=== PATIENT | female | born 1970 | race Caucasian/White ===

== ENCOUNTER 2018-12-07 10:29 | Day surgery (SDC) | payer BC, OTHER ==
[2018-12-06 14:02] VITALS: BMI 21.6
--- NOTE | 2018-12-07 07:49 | HP ---
History & Physical Update - History History: No Change (47 y/o with PMH Hyperlipidemia who was seen in office and complained of Menorrhagia. Had HSN and was diganosed with endometrial polyps. Pt was counseled on her options and elected to undergo hysteroscopy D&C /polypectomy. No complaints today.) - Physical Physical: No Change - Assessment Assessment: No Change Currently as noted:: Endometrial polyps, menorrhagia - Plan Plan: No Change (Agree with H&P from 10/21/2018. Has menorrhagia and endometrial polyps, for hysteroscopy, d&C, polypectomy)
[2018-12-07 11:14] VITALS: BP 133/91; PULSE 91; TEMP 98
== END 2018-12-07 13:00 | disposition home or self-care (01) ==
LOC: JASU-SURG 10:29
PROVIDERS: ATTEND Obstetrics & Gynecology
DX: Z53.8 Procedure and treatment not carried out for other reasons (principal)
CPT/HCPCS: 36415; 84132; 84703; 86850; 86900; 86901; 87086; 87186

== ENCOUNTER 2019-01-04 09:34 | Day surgery (SDC) | payer BC, OTHER ==
[2019-01-04 10:29] VITALS: BMI 21.8
[2019-01-04 10:41] LABS: HCG,QUALITATIVE URINE Negative; HYALINE CASTS 3 /lpf (0-8); URINE APPEARANCE CLEAR; URINE BACTERIA 18.7 /hpf (NEGATIVE); URINE BILIRUBIN NEGATIVE (NEGATIVE); URINE COLOR YELLOW; URINE GLUCOSE (UA) NEGATIVE (NEGATIVE); URINE KETONE NEGATIVE (NEGATIVE); URINE LEUK ESTERASE NEGATIVE (NEGATIVE); URINE NITRITE NEGATIVE (NEGATIVE); URINE PROTEIN NEGATIVE (NEGATIVE); URINE RBC 4 /hpf (0-4); URINE UROBILINOGEN 0.2 mg/dL (0.2-1.0); URINE WBC 3 /hpf (0-5)
[2019-01-04] MEDS ORDERED: ACETAMINOPHEN 325 MG TABLET (FP) PO PRN (11:25)
--- NOTE | 2019-01-04 11:27 | HP ---
Admitting History and Physical - Admission Chief Complaint: Endometrial polyp History of Present Illness: 48 y/o with PMH of HLD here today for scheduled hysteroscopic myomectomy/ polypectomy, suction D&C for endometrial polyp found on ultrasound. History Source: Patient, Medical Record Limitations to Obtaining History: No Limitations - Past Medical History STRIPER: No: Alzheimer's Cardiovascular: No: HTN Gastrointestinal: No: Gastritis, GERD Hepatobiliary: No: Hepatitis B, Hepatitis C Renal/: Yes: UTI (recent UTI, treated, CARLENE negative) ...LMP: 11/25/18 ...: No Heme/Onc: No: Anemia Infectious Disease: No: HIV, MRSA Psych: No: Anxiety, Bipolar, Depression - Smoking History Smoking history: Never smoked - Alcohol/Substance Use Hx Alcohol Use: Yes (SOCIAL) Home Medications - Allergies Allergies/Adverse Reactions: Allergies Allergy/AdvReac Type Severity Reaction Status Date / Time No Known Allergies Allergy Verified 12/07/18 10:57 - Home Medications Home Medications: Ambulatory Orders Simvastatin [Zocor -] 40 mg PO HS 10/21/18 Cholecalciferol (Vitamin D3) [Vitamin D3 -] 400 unit PO DAILY 12/06/18 Review of Systems - Review of Systems Constitutional: reports: No Symptoms Eyes: reports: No Symptoms HENT: reports: No Symptoms Neck: reports: No Symptoms Cardiovascular: reports: No Symptoms Respiratory: reports: No Symptoms Gastrointestinal: reports: No Symptoms Genitourinary: reports: No Symptoms Breasts: reports: No Symptoms Reported Musculoskeletal: reports: No Symptoms Integumentary: reports: No Symptoms Neurological: reports: No Symptoms Endocrine: reports: No Symptoms Hematology/Lymphatic: reports: No Symptoms Psychiatric: reports: No Symptoms Physical Examination Vital Signs: Vital Signs Temperature 98.6 F 01/04/19 10:32 Pulse Rate 86 01/04/19 10:32 Respiratory Rate 20 01/04/19 10:32 Blood Pressure 124/71 01/04/19 10:32 O2 Sat by Pulse Oximetry (%) 100 01/04/19 10:32 Constitutional: Yes: Well Nourished, No Distress, Calm Eyes: Yes: Conjunctiva Clear, EOM Intact HENT: Yes: Atraumatic, Normocephalic Neck: Yes: Supple, Trachea Midline Cardiovascular: Yes: Regular Rate and Rhythm Respiratory: Yes: Regular, CTA Bilaterally Gastrointestinal: Yes: Normal Bowel Sounds, Soft Neurological: Yes: Alert, Oriented Psychiatric: Yes: Alert, Oriented Problem List - Problems (1) Endometrial polyp Code(s): N84.0 - POLYP OF CORPUS UTERI Assessment/Plan for hysteroscopic polypectomy/myomectomy and suction D&C NPO SCDs Anesthesia aware Consent signed in office, reconfirmed today
[2019-01-04] MEDS ORDERED: LACTATED RINGERS SOLUTION 1,000 ML IV SCH ×2 (11:30→11:45)
[2019-01-04] MEDS ORDERED: ONDANSETRON 4 MG/2 ML VIAL IVPUSH PRN (11:35)
[2019-01-04] MEDS ORDERED: MIDAZOLAM HCL 2 MG/2 ML SINGLE DOSE VIAL ONE (11:40)
[2019-01-04] MEDS ORDERED: PROPOFOL 20 ML ONE ×2 (11:45)
[2019-01-04] MEDS ORDERED: ROCURONIUM BROMIDE 50 MG/5 ML SYRINGE ONE (11:45)
--- NOTE | 2019-01-04 12:07 | OP ---
Operative Note - Note: Operative Date: 01/04/19 (dictation [id number]) Pre-Operative Diagnosis: suspected endometrial polyp Operation: hysteroscopy, suction D&C Findings: posterior uterine wall polypoid endometrial tissue Post-Operative Diagnosis: Same as Pre-op Surgeon: Briana Alexander Anesthesiologist/[employer]: Otilia Salguero MD Anesthesia: General Specimens Removed: endometrial curettings Estimated Blood Loss (mls): 5 Operative Report Dictated: Yes
[2019-01-04 13:16] VITALS: TEMP 98.5
[2019-01-04 13:42] VITALS: BP 130/85; PULSE 88
--- NOTE | 2019-01-04 20:46 | OP ---
DATE OF OPERATION: 01/04/2019 PREOPERATIVE DIAGNOSIS: Abnormal uterine bleeding and suspected endometrial polyp. POSTOPERATIVE DIAGNOSIS: Abnormal uterine bleeding and suspected endometrial polyp. PROCEDURE: Hysteroscopy, suction dilation and curettage. SURGEON: Briana Alexander D.O. ANESTHESIOLOGIST: Otilia Salguero M.D. ANESTHESIA: General. FINDINGS: Included polypoid endometrial tissue, no discrete endometrial polyps or fibroids. DISPOSITION: Stable to PACU. ESTIMATED BLOOD LOSS: 5 mL. BRIEF HISTORY AND PROCEDURE: Patient is a 48-year-old female who had been seen in the office with complaints of abnormal uterine bleeding, upon hystero-sonogram was found to have what appeared to be a posterior endometrial polyp. Patient was counseled on her options, and she elected to undergo hysteroscopic removal. Patient was admitted to [facility] on outpatient ambulatory surgery on January 04, 2019, consents for procedure which were re-signed. The patient was then taken back to the operating room and given general anesthesia, placed in dorsal lithotomy position. She was prepped and draped in the usual sterile fashion, and a hard timeout was performed. A speculum was placed inside the vagina. The anterior lip of the cervix was identified and grasped with a single-toothed tenaculum. The cervix was dilated to accommodate a diagnostic hysteroscope was advanced to the fundus of the uterus. Bilateral tubal ostia were noted. No discrete polyps or fibroids were appreciated. However, polypoid tissue on the posterior aspect of the uterus was noted. Sharp dilation and curettage and suction dilation and curettage was performed to remove the tissue. One final pass with the hysteroscope revealed no evidence of uterine perforation, and complete removal of the polypoid tissue. All other instruments were removed from the vagina, and sponge, needle and instrument counts were reported to be correct. The patient went to recovery in stable condition in the PACU after the procedure. BRIANA ALEXANDER DO [id number] MTDD
--- NOTE | 2019-01-05 16:57 | PATH ---
Surgical Pathology Report Patient Name: JUDITH KOLB [facility]. Rec. #: [id number] /Age/Gender: 1970 (Age: 48) / F Account: [id number] Location: [facility] SURGICAL Taken: 01/04/2019 Received: 01/04/2019 Reported: 01/05/2019 Physicians: Briana Alexander M.D. Specimen(s) Received ENDOMETRIAL CURETTINGS Clinical History Abnormal uterine bleeding Final Diagnosis ENDOMETRIAL CURETTINGS: FRAGMENTS OF SECRETORY TYPE ENDOMETRIUM. SEPARATE ENDOCERVICAL TISSUE WITH SQUAMOUS METAPLASIA. Electronically Signed Andrews Riggins M.D. Gross Description Received in formalin labeled "endometrial curettings," is a 2.7 x 2.5 x 0.3 cm aggregate of sheehan-pink soft tissue fragments. The formalin is filtered and the specimen is entirely submitted in one cassette. DL/01/04/2019 saudi/01/04/2019
== END 2019-01-04 13:45 | disposition home or self-care (01) ==
LOC: JASU-SURG 09:34
PROVIDERS: ATTEND Obstetrics & Gynecology
PROC: 0UJD8ZZ Inspection of Uterus and Cervix, Via Natural or Artificial Opening Endoscopic (ICD-10-PCS; 2019-01-04)
PROC: 0UDB7ZX Extraction of Endometrium, Via Natural or Artificial Opening, Diagnostic (ICD-10-PCS; principal; 2019-01-04 11:30)
DX: N93.9 Abnormal uterine and vaginal bleeding, unspecified (principal); N87.9 Dysplasia of cervix uteri, unspecified
CPT/HCPCS: 81003; 84703; 86850; 86900; 86901; 94760